=== PATIENT | male | born 1955 | race Caucasian/White ===

== ENCOUNTER → 2019-10-17 | Outpatient (CLI) | payer BC ==
[2019-10-17 08:01] LABS: African American GFR (CKD) >90 (>60 ml/min/1.73 sqM); Blood Urea Nitrogen 19 mg/dL (9-20); Non-African American GFR(CKD) >90 (>60 ml/min/1.73 sqM)
--- NOTE | 2019-10-17 11:36 | CT ---
EXAMINATION TYPE: CT abdomen pelvis w con DATE OF EXAM: 10/17/2019 COMPARISON: None HISTORY: recent diagnosis of prostate CA CT DLP: 1681.0 mGycm Automated exposure control for dose reduction was used. TECHNIQUE: Helical acquisition of images from the lung bases through the pelvis have been completed. CONTRAST: Performed with Oral Contrast and with IV Contrast, patient injected with 100 mL of Isovue 300. FINDINGS: There are coronary artery calcifications present. LUNG BASES: No significant abnormality is appreciated. AORTA: Atheromatous changes are present LIVER/GB: Dependent portion of the gallbladder shows a high attenuation focus compatible with small s tone measuring only 3 to 4 mm. PANCREAS: No significant abnormality is seen. SPLEEN: No significant abnormality is seen. ADRENALS: No significant abnormality is seen. KIDNEYS: No significant abnormality is seen. REPRODUCTIVE ORGANS: Prostate is enlarged and shows associated calcification. BOWEL: Retained fecal debris present throughout the distribution of the colon, the appendix is siddhartha l, there is no bowel obstruction FREE AIR: No Free Air visible. ASCITES: None visible. PELVIC ADENOPATHY: None visualized. RETROPERITONEAL ADENOPATHY: No Retroperitoneal Adenopathy visible. URINARY BLADDER: Bladder wall thickening could be due to chronic outlet obstruction or lack of diste ntion. OSSEOUS STRUCTURES: Degenerative disc changes are present in the lower lumbar spine. IMPRESSION: CHOLELITHIASIS. PROSTATE ENLARGEMENT WITH CALCIFICATION. CORRELATE FOR FECAL STASIS.
--- NOTE | 2019-10-17 14:06 | NM ---
EXAMINATION TYPE: NM bone scan whole body DATE OF EXAM: 10/17/2019 COMPARISON: Correlation CT abdomen and pelvis same day HISTORY: 64-year-old male with general joint pain, history of prostate cancer. TECHNIQUE: Delayed whole-body scanning was performed following the injection of 22.9 mCi Tc 99m MDP i n the anterior and posterior projection. Images acquired 4 hours post injection. FINDINGS: Some degenerative activity at the shoulders and sternoclavicular joints. Some urine contamination is noted. No suspicious distribution of tracer activity to suggest osseous metastatic disease. IMPRESSION: No scintigraphic evidence for osseous metastatic disease.
== END | disposition home or self-care (01) ==
LOC: RADCTMAIN 07:09
PROVIDERS: ATTEND Urology
DX: C61 Malignant neoplasm of prostate (principal); K80.20 Calculus of gallbladder without cholecystitis without obstruction
CPT/HCPCS: 82565; 84520; 74177; 36415; 78306; A9503; Q9967

== ENCOUNTER → 2019-11-23 | Outpatient (CLI) | payer BC ==
[2019-11-23 09:11] LABS: Basophils % (A) 1 %; Eosinophils # (A) 0.1 k/uL (0-0.7); Eosinophils % (A) 2 %; HCT 48.8 % (39.0-53.0); HGB 16.5 gm/dL (13.0-17.5); Lymphocytes # (A) 1.7 k/uL (1.0-4.8); Lymphocytes % (A) 28 %; MCH 29.9 pg (25.0-35.0); MCHC 33.8 g/dL (31.0-37.0); MCV 88.5 fL (80.0-100.0); Mean Platelet Volume 7.3; Monocytes # (A) 0.5 k/uL (0-1.0); Monocytes % (A) 8 %; Neutrophils # (A) 3.6 k/uL (1.3-7.7); Neutrophils % (A) 60 %; Platelet Count 200 k/uL (150-450); RBC 5.51 m/uL (4.30-5.90); RDW 12.5 % (11.5-15.5)
[2019-11-23 09:28] LABS: African American GFR (CKD) >90 (>60 ml/min/1.73 sqM); Anion Gap 7 mmol/L; Blood Urea Nitrogen 17 mg/dL (9-20); Calcium 9.2 mg/dL (8.4-10.2); Carbon Dioxide 27 mmol/L (22-30); Chloride 107 mmol/L (98-107); Glucose 95 mg/dL (74-99); Non-African American GFR(CKD) >90 (>60 ml/min/1.73 sqM); Potassium 4.1 mmol/L (3.5-5.1); Sodium 141 mmol/L (137-145)
--- NOTE | 2019-11-23 11:44 | XR ---
EXAMINATION TYPE: XR chest 2V DATE OF EXAM: 11/23/2019 COMPARISON: None INDICATION: Presurgical testing TECHNIQUE: Frontal and lateral views of the chest are obtained. FINDINGS: The heart size is normal. The pulmonary vasculature is normal. The lungs are clear. Spondylosis is within the thoracic spine. IMPRESSION: 1. No acute pulmonary process.
== END | disposition home or self-care (01) ==
LOC: LABPAT 08:14
PROVIDERS: ATTEND Urology
DX: Z01.818 Encounter for other preprocedural examination (principal); R53.83 Other fatigue; R05 Cough; C61 Malignant neoplasm of prostate; R58 Hemorrhage, not elsewhere classified
CPT/HCPCS: 36415; 71046; 80048; 85025; 86850; 86900; 86901; 93005

== ENCOUNTER 2019-11-30 08:08 | Day surgery (SDC) | payer BC ==
[2019-11-29 08:48] VITALS: BMI 31.2
--- NOTE | 2019-11-29 15:15 | P.HPIHPCON ---
History of Present Illness H&P Date: 11/29/19 Chief Complaint: Prostate cancer Mr boyd is a 64 yo male with hx of Shlomo 7(4+3) prostate cancer. We discussed with him the options including surgery and radiation therapy. We discussed the risk and benefits with him of each approach. I discussed with surgery the risk of urinary incontinence or erectile dysfunction, I also discussed with him risk of injury to nearby organs including bowels and rectum and blood vessels. I also discussed the risk from anesthesia with him. Which included blood clots, heart attack, stroker and even . He understood all the risk and agreed to proceed with a robotic-assisted radical prostatectomy and PLND Consent for Procedure: I have explained the operation/procedure to the patient, including the risks, benefits, side effects, alternative therapies (including not receiving the proposed treatment or service), the likelihood of the patient achieving his/her goals, and potential recuperation problems for the procedure/sedation/analgesia, as well as any blood products, if indicated. I also explained to the patient the risks, benefits and side effects of the alternatives, as well as the risks related to not receiving the proposed procedure, care, treatment, or services. Past Medical History Past Medical History: Cancer, CVA/TIA, Hyperlipidemia, Prostate Disorder Additional Past Medical History / Comment(s): hx of skin CA, protate CA, CVA 2018, states some memory loss, prev hx of type II diabetes, no longer on meds after 65lb wt loss. History of Any Multi-Drug Resistant Organisms: None Reported Past Anesthesia/Blood Transfusion Reactions: No Reported Reaction Smoking Status: Never smoker - Past Family History Father Family Medical History: Cancer Mother Family Medical History: Neurologic Disorder Additional Family Medical History / Comment(s): MS Medications and Allergies Home Medications Medication Instructions Recorded Confirmed Type Aspirin [Adult Low Dose Aspirin EC] 81 mg PO DAILY 11/29/19 11/29/19 History Atorvastatin [Lipitor] 10 mg PO DAILY 11/29/19 11/29/19 History Cannabidiol (Cbd) [Epidiolex] 1 applic PO HS 11/29/19 11/29/19 History Clopidogrel [Plavix] 75 mg PO DAILY 11/29/19 11/29/19 History Ergocalciferol [Vitamin D2] 50,000 unit PO MO 11/29/19 11/29/19 History Allergies Allergy/AdvReac Type Severity Reaction Status Date / Time No Known Allergies Allergy Verified 11/29/19 08:35 Surgical - Exam - General well developed, well nourished, no distress, no pain - Eyes PERRL, normal ocular movement - Respiratory normal expansion, normal respiratory effort - Abdomen Abdomen: soft, non tender - Psychiatric oriented to time, oriented to person, oriented to place Assessment and Plan Assessment: 64 yo male with hx of shlomo 7 (4+3) prostate cancer -OR for robotic prostatectomy and PLND
[~2019-11-30 08:08] MED LIST: DEXAMETHASONE SOD PHOSPHATE 10 MG/ML 1 ML VIAL IV ONE; HEPARIN SODIUM,PORCINE 5,000 UNIT/ML 1 ML VIAL SQ ONE; LIDOCAINE 1% (10MG/ML) FOR IV START INTRADERMA PRN; MIDAZOLAM 2 MG/2 ML VIAL IV PRN; ONDANSETRON 4 MG/2 ML VIAL IVP ONE; fentaNYL (PF) 50 MCG/ML 2 ML AMP IVP PRN
[2019-11-30] MEDS: LACTATED RINGERS 1,000 ML IV SCH ×2 (09:36→09:37)
[2019-11-30] MEDS ORDERED: MIDAZOLAM 2 MG/2 ML VIAL ONE (12:12)
[2019-11-30] MEDS ORDERED: PROPOFOL 10 MG/ML 20 ML VIAL IV ONE (12:12)
[2019-11-30] MEDS ORDERED: NEOSTIGMINE 1 MG/ML 10 ML VIAL ONE (12:12)
[2019-11-30] MEDS ORDERED: LIDOCAINE 1% INJ 10MG/ML (20 ML MDV) ONE (12:12)
[2019-11-30] MEDS ORDERED: LABETALOL 5 MG/ML VIAL MDV ONE (12:12)
[2019-11-30] MEDS ORDERED: GLYCOPYRROLATE 0.2 MG/ML 2 ML VIAL ONE (12:12)
[2019-11-30] MEDS ORDERED: fentaNYL (PF) 50 MCG/ML 2 ML AMP ONE (12:12)
[2019-11-30] MEDS ORDERED: ROCURONIUM 10 MG/ML (5 ML VIAL) IV ONE (12:12)
[2019-11-30] MEDS ORDERED: BUPIVACAINE (PF) 0.25% 30 ML VIAL SQ ONE (12:55)
[2019-11-30] MEDS ORDERED: LACTATED RINGERS 1,000 ML IV ONE ×3 (13:32→16:50)
--- NOTE | 2019-11-30 15:45 | P.OP ---
Date of Procedure: 11/30/19 Preoperative Diagnosis: Prostate cancer Postoperative Diagnosis: Same Procedure(s) Performed: Pelvic lymph node dissection, lysis of adhesion(>45minutes) Implants: None Anesthesia: SANAZ Surgeon: Carlos Payton Etiologist #1: Chanelle Ivey Estimated Blood Loss (ml): 200 Pathology: other (Right pelvic lymph node) Condition: stable Disposition: PACU Indications for Procedure: Mr boyd is a 64 yo male with hx of Jossue 7(4+3) prostate cancer. We discussed with him the options including surgery and radiation therapy. We discussed the risk and benefits with him of each approach. I discussed with surgery the risk of urinary incontinence or erectile dysfunction, I also discussed with him risk of injury to nearby organs including bowels and rectum and blood vessels. I also discussed the risk from anesthesia with him. Which included blood clots, heart attack, stroker and even . He understood all the risk and agreed to proceed with a robotic-assisted radical prostatectomy and PLND Operative Findings: Greater than 3 cm pelvic lymph node along the right bifurcation of the iliac vessels, sent for frozen came back positive for prostate cancer, the entire lymph node is completely replaced by tumor. Adhesions along the left lower quadrant Description of Procedure: Patient was brought to the operating room, general anesthesia was induced. He was prepped and draped in sterile fashion placed in the supine position. An incision was made supraumbilically. Next a Veress needle was placed and insufflation was obtained. At this point a camera port was placed supraumbilically and 2 additional 8 mm robotic arms will placed on the left side and an additional robotic arm was placed on the right side. A 12 mm on the right and a 5mm physical laboratory assistant was placed in right upper quadrant. The robot was then docked. Patient had significant adhesion along the left lower quadrant. The adhesion were taken down. More than 45 minutes were spent performing lysis of adhesions. At this time attention was carried to the pelvic lymph nodes. The incision was made lateral to the median umbilical ligament and the bladder was dropped down incision was extended into the right and the left vas. The right vas was ligated. And the peritoneum was further opened until ureter was identified. At this point a large hard lymph node was identified along the right pelvic lymph node chain, it was near the bifurcation of the iliac vessels. Of note the node was adherent to the right external iliac vein. Initially the lateral attachment of the node was dissected off and further dissection allowed the node to be mobilized from the external iliac vein. The node was sent for frozen. And came back positive for carcinoma, the entire node was completely replaced by tumor. Extended pelvic lymph node dissection was performed on the right Given the finding of positive lymph node completely replaced by tumor, T3 disease and a PSA greater than 20 these findings were discussed with the patient . I discussed with her that surgery unlikely to be curative and he will need radiation and hormone postoperatively. Discussed that doing surgery might improve his survival but is associated with high risk of urinary incontinence. She indicated the patient would prefer quality rather than quantity of life. She agreed to abort the prostatectomy. He will be referred to radiation oncology, and we will start patient on androgen deprivation therapy. At this time the robot was de-docked. The 12 mm port fascia was closed using 2-0 Vicryl. Skin incision closed with 4-0 Monocryl. 10 mL of of Marcaine was injected. Skin glue was applied. The patient was awakened from anesthesia and taken recovery in stable condition
[2019-11-30 16:03] VITALS: TEMP 97.8
[2019-11-30 16:06] VITALS: RESP 16
[2019-11-30] MEDS ORDERED: LABETALOL 5 MG/ML VIAL MDV IVP ONE ×2 (16:17→16:40)
[2019-11-30] MEDS: HYDROmorphone 0.5 MG/0.5 ML SYRINGE IVP PRN ×2 (16:22→16:35)
[2019-11-30] MEDS ORDERED: hydrALAZINE HCL 20 MG/ML 1 ML VIAL IVP ONE (17:11)
[2019-11-30 18:01] VITALS: BP 170/96; PULSE 96
--- NOTE | 2019-12-05 12:58 | P.ANPRN ---
Procedure Note - Anesthesia - Nerve Block Performed Bilateral Transversus Abdominis Single Time Out Performed: Yes Date of Procedure: 11/30/19 Procedure Start Time: Procedure Stop Time: Location of Patient: PreOp Indication: Acute Post-Operative Pain, Requested by Surgeon Sedation Type: Sedate with meaningful contact maintained Preparation: Sterile Prep Position: Supine Needle Types: Pajunk Needle Gauge: 21 Ultrasound used to visualize needle placement: Yes Ultrasound used to observe medication spread: Yes Blood Aspirated: No Pain Paresthesia on Injection Noted: No Resistance on Injection: Normal Image Stored and Saved: Yes Events: Uneventful and Well Tolerated (bilateral tap block done with ropi .5% 25cc bilaterally)
== END 2019-11-30 18:30 | disposition home or self-care (01) ==
LOC: OR 08:08
PROVIDERS: ATTEND Urology
DX: C61 Malignant neoplasm of prostate (principal); C77.5 Secondary and unspecified malignant neoplasm of intrapelvic lymph nodes; K66.0 Peritoneal adhesions (postprocedural) (postinfection); E78.5 Hyperlipidemia, unspecified; E11.9 Type 2 diabetes mellitus without complications; Z86.73 Personal history of transient ischemic attack (TIA), and cerebral infarction without residual deficits; Z85.828 Personal history of other malignant neoplasm of skin; Z80.9 Family history of malignant neoplasm, unspecified; Z82.0 Family history of epilepsy and other diseases of the nervous system; Z79.82 Long term (current) use of aspirin; Z79.02 Long term (current) use of antithrombotics/antiplatelets; Z79.899 Other long term (current) drug therapy
CPT/HCPCS: 38571; J0360; J2250; J1644; J1100; J2710; J0690; J2405; J2001; J3010; J2704; J1170; 86850; 86900; 86901; 88305; 88331

== ENCOUNTER → 2020-02-07 | Outpatient (CLI) | payer BC ==
[2020-02-07 11:40] LABS: Basophils % (A) 1 %; Eosinophils # (A) 0.1 k/uL (0-0.7); Eosinophils % (A) 2 %; HCT 45.1 % (39.0-53.0); HGB 15.3 gm/dL (13.0-17.5); Lymphocytes # (A) 1.4 k/uL (1.0-4.8); Lymphocytes % (A) 23 %; MCH 29.5 pg (25.0-35.0); MCHC 33.9 g/dL (31.0-37.0); MCV 87.1 fL (80.0-100.0); Mean Platelet Volume 7.1; Monocytes # (A) 0.5 k/uL (0-1.0); Monocytes % (A) 8 %; Neutrophils # (A) 4.1 k/uL (1.3-7.7); Neutrophils % (A) 65 %; Platelet Count 203 k/uL (150-450); RBC 5.18 m/uL (4.30-5.90); RDW 12.5 % (11.5-15.5); WBC 6.3 k/uL (3.8-10.6)
[2020-02-07 12:23] LABS: African American GFR (CKD) >90 (>60 ml/min/1.73 sqM); Anion Gap 5 mmol/L; Blood Urea Nitrogen 22 mg/dL (9-20); Calcium 9.5 mg/dL (8.4-10.2); Carbon Dioxide 31 mmol/L (22-30); Chloride 104 mmol/L (98-107); Glucose 106 mg/dL (74-99); Non-African American GFR(CKD) >90 (>60 ml/min/1.73 sqM); Potassium 4.5 mmol/L (3.5-5.1); Sodium 140 mmol/L (137-145)
== END | disposition home or self-care (01) ==
LOC: LABPAT 09:57
PROVIDERS: ATTEND Urology
DX: Z01.818 Encounter for other preprocedural examination (principal); C61 Malignant neoplasm of prostate
CPT/HCPCS: 36415; 80048; 85025

== ENCOUNTER → 2020-02-07 | Outpatient (CLI) | payer BC | END | disposition home or self-care (01) | LOC: LABWHC1 10:05 | PROVIDERS: ATTEND Radiology Radiation Oncology | DX: C61 Malignant neoplasm of prostate (principal) | CPT/HCPCS: 36415; 84153 ==

== ENCOUNTER → 2020-02-14 | Day surgery (SDC) | payer BC ==
--- NOTE | 2020-02-12 10:12 | P.HPIHPCON ---
History of Present Illness H&P Date: 02/14/20 Chief Complaint: Prostate cancer Mr Prieto is a 64-year-old male with history of Hertel 7 (4+3) prostate cancer, with metastatic disease to the PLND. He elected to proceed with external beam radiation therapy and ADT. Discussed with him the option of doing SpaceOR. I discussed with him the risk and benefit of the procedure. I discussed with him the benefit is mainly to reduce the rectal toxicity from radiation. I discussed with him the risk which includes but not limited to bleeding, infection. Also discussed with him if there is evidence of rectal perforation and we cannot proceeded with placement he understood all the risk and agreed to proceed Consent for Procedure: I have explained the operation/procedure to the patient, including the risks, benefits, side effects, alternative therapies (including not receiving the proposed treatment or service), the likelihood of the patient achieving his/her goals, and potential recuperation problems for the procedure/sedation/analgesia, as well as any blood products, if indicated. I also explained to the patient the risks, benefits and side effects of the alternatives, as well as the risks related to not receiving the proposed procedure, care, treatment, or services. - Constitutional Constitutional: Denies chills, Denies fever - Cardiovascular Cardiovascular: Denies chest pain, Denies shortness of breath - Gastrointestinal Gastrointestinal: Denies abdominal pain, Denies diarrhea, Denies nausea, Denies vomiting - Genitourinary (Female) Genitourinary: Denies dysuria, Denies hematuria Past Medical History Past Medical History: Cancer, CVA/TIA, Hyperlipidemia, Prostate Disorder Additional Past Medical History / Comment(s): hx of skin CA, protate CA, CVA 2019, states some memory loss, prev hx of type II diabetes, no longer on meds after 65lb wt loss. History of Any Multi-Drug Resistant Organisms: None Reported Past Anesthesia/Blood Transfusion Reactions: No Reported Reaction Smoking Status: Never smoker - Past Family History Father Family Medical History: Cancer Mother Family Medical History: Neurologic Disorder Additional Family Medical History / Comment(s): MS Medications and Allergies Home Medications Medication Instructions Recorded Confirmed Type Aspirin [Adult Low Dose Aspirin EC] 81 mg PO DAILY 11/29/19 11/30/19 History Atorvastatin [Lipitor] 10 mg PO DAILY 11/29/19 11/30/19 History Cannabidiol (Cbd) [Epidiolex] 1 applic PO HS 11/29/19 11/30/19 History Clopidogrel [Plavix] 75 mg PO DAILY 11/29/19 11/30/19 History Ergocalciferol [Vitamin D2] 50,000 unit PO MO 11/29/19 11/30/19 History Ibuprofen [Motrin] 600 mg PO Q8HR PRN #20 tab 11/30/19 Rx traMADol HCl [Ultram] 50 mg PO Q6HR PRN 3 Days #8 tab 11/30/19 Rx Allergies Allergy/AdvReac Type Severity Reaction Status Date / Time No Known Allergies Allergy Verified 11/30/19 09:01 Surgical - Exam - General well developed, well nourished, no distress - Eyes normal ocular movement - ENT normal nares, normal mucosa - Respiratory normal expansion, normal respiratory effort - Psychiatric oriented to time, oriented to person, oriented to place Assessment and Plan Assessment: 64 yo male wit hx of shlomo 7 (4+3) prostate cancer -OR for SpaceOR placement
[2020-02-12 10:36] VITALS: BMI 31.5
[~2020-02-14] MED LIST changes: -DEXAMETHASONE SOD PHOSPHATE 10 MG/ML 1 ML VIAL IV ONE; +DEXAMETHASONE SOD PHOSPHATE 4 MG/ML 1 ML VIAL IV ONE; +GLYCOPYRROLATE 0.2 MG/ML 2 ML VIAL ONE; -HEPARIN SODIUM,PORCINE 5,000 UNIT/ML 1 ML VIAL SQ ONE; +HYDROmorphone 0.5 MG/0.5 ML SYRINGE IVP PRN; +KETAMINE 10 MG/ML 20 ML VIAL ONE; +LACTATED RINGERS 1,000 ML IV SCH; +LIDOCAINE 1% INJ 10MG/ML (20 ML MDV) ONE; +LIDOCAINE 2% INJ 20 MG/ML SQ ONE; -MIDAZOLAM 2 MG/2 ML VIAL IV PRN; +MIDAZOLAM 2 MG/2 ML VIAL ONE; +PROPOFOL 10 MG/ML 20 ML VIAL IV ONE; -fentaNYL (PF) 50 MCG/ML 2 ML AMP IVP PRN; +fentaNYL (PF) 50 MCG/ML 2 ML AMP ONE
[2020-02-14 08:58] VITALS: TEMP 97.7
[2020-02-14 11:35] VITALS: RESP 16
--- NOTE | 2020-02-14 11:50 | P.OP ---
Date of Procedure: 02/14/20 Preoperative Diagnosis: Adenocarcinoma of the Prostate Postoperative Diagnosis: Same Procedure(s) Performed: SpaceOAR Implant Anesthesia: MAC Surgeon: Steve Alan Estimated Blood Loss (ml): 5 IV fluids (ml): 300 Pathology: none sent Condition: stable Disposition: PACU Indications for Procedure: Mr. Prieto is a 64-year-old male with history of Coulters 7 (4+3) prostate cancer, with metastatic disease to the pelvic lymph nodes. He elected to proceed with external beam radiation therapy and ADT. He was offered the option of doing SpaceOAR and elected to proceed with it to reduce the rectal toxicity from radiation. Operative Findings: 1.4 cm separation created between prostate and rectum. Description of Procedure: The patient was taken to the operating room and placed in the dorsolithotomy position, with his legs supported in Vinay stirrups. The external genitalia was prepped and draped sterilely. The Bruel and Kjaer transrectal ultrasound probe was placed intrarectally. The prostate was imaged. The probe was then placed within the stabilizing stand. A spinal needle was advanced under ultrasonic guidance to the level of the urogenital diaphragm, and lidocaine was used to in filtrate the tissues as the needle was withdrawn. Next, the SpaceOAR needle was passed through the midline of the perineum, 1-2 cm anterior to the anal opening. The needle was slowly advanced under ultrasonic guidance until the needle tip was located within the fat plane between the prostate and rectum, at the level of the mid prostate gland. The needle was confirmed to be midline on the axial imaging. A small amount of normal saline was injected for hydrodissection. Next, the SpaceOAR components were mixed and loaded into the Y connector per protocol. The Y connector was then connected to the needle, and the components were injected slowly over a course of approximately 12 seconds. A total of 10 ml was injected. 1.4 cm distance was created between the prostate and rectum, as desired. It should be noted that at no point was there any concern of rectal perforation. The needle was withdrawn, as well as the transrectal ultrasound probe, and the procedure was terminated. The patient tolerated the procedure well and was taken to the recovery room in stable condition.
[2020-02-14 11:53] VITALS: BP 136/86; PULSE 71
== END | disposition home or self-care (01) ==
LOC: OR 08:25
PROVIDERS: ATTEND Urology
DX: C61 Malignant neoplasm of prostate (principal); E78.5 Hyperlipidemia, unspecified; E11.9 Type 2 diabetes mellitus without complications; Z86.73 Personal history of transient ischemic attack (TIA), and cerebral infarction without residual deficits; Z79.82 Long term (current) use of aspirin; Z79.02 Long term (current) use of antithrombotics/antiplatelets; Z79.899 Other long term (current) drug therapy; Z85.828 Personal history of other malignant neoplasm of skin; Z80.9 Family history of malignant neoplasm, unspecified; Z82.0 Family history of epilepsy and other diseases of the nervous system
CPT/HCPCS: 55874; J2001 ×2; J2250; J1100; J0690; J2405; J3010; J2704

== ENCOUNTER → 2020-09-22 | Outpatient (CLI) | payer BC ==
[2020-09-22 09:33] LABS: African American GFR (CKD) >90 (>60 ml/min/1.73 sqM); Blood Urea Nitrogen 22 mg/dL (9-20); Non-African American GFR(CKD) >90 (>60 ml/min/1.73 sqM)
--- NOTE | 2020-09-22 11:44 | CT ---
EXAMINATION TYPE: CT abdomen pelvis wo/w con DATE OF EXAM: 09/22/2020 COMPARISON: 02/24/2020 INDICATION: Prostate cancer DLP: 3493.0 mGycm, Automated exposure control for dose reduction was used. CONTRAST: 100 mL of Isovue 300. Study performed with Oral Contrast TECHNIQUE: Axial images were obtained from above the diaphragm to the pubic rami in the axial plane a t 5 mm thick sections. Reconstructed images are reviewed on the computer in the coronal plane. Imag es were without and with intravenous contrast. FINDINGS: Limited CT sections are obtained the lung bases. The lung bases are clear. Coronary artery calcific ation is present. CT ABDOMEN: Liver: Normal Spleen: Normal Pancreas: Normal Adrenal glands: The adrenal glands are normal. Gallbladder: Gallstones present. Kidneys: No masses are evident. No hydronephrosis is present. No cysts are present. Delayed images were obtained through the kidneys, which remain unremarkable. No renal stones are evident. Aorta: Vascular calcification is within the aorta. Inferior vena cava: Normal. CT PELVIS: Loops of bowel within the abdomen and pelvis are normal. Diverticulosis without evidence of acute di verticulitis is present within the sigmoid colon. Fecal debris is within the colon. There are loops of bowel which are incompletely distended or lack oral contrast limiting their evaluation. Appendix: Normal as visualized. Urinary bladder: Normal. Genitourinary structures: Prostate contains calcification. Osseous structures: No suspicious lytic or sclerotic lesions. No retrocrural adenopathy is evident. There is a small retrocaval lymph node. No suspicious obturator canal adenopathy is evident. There may be diminished size right iliac chain adenopathy measuring 2.3 x 1.6 cm. IMPRESSIONS: 1. There is a right iliac chain lymph node which is diminished from comparison 2. Diverticulosis without acute diverticulitis. 3. Cholelithiasis
== END | disposition home or self-care (01) ==
LOC: RADCTMAIN 08:50
PROVIDERS: ATTEND Radiology Radiation Oncology
DX: C61 Malignant neoplasm of prostate (principal); K57.30 Diverticulosis of large intestine without perforation or abscess without bleeding; K80.20 Calculus of gallbladder without cholecystitis without obstruction
CPT/HCPCS: 82565; 84520; 74178; 36415; Q9967